=== PATIENT | male | born 1950 | race Caucasian/White ===

== ENCOUNTER 2016-10-25 12:35 | Inpatient (IN) | payer MEDICARE ==
[~2016-10-25] VITALS: Ht 191.8 cm; Wt 111.4 kg
[2016-10-25] MEDS ORDERED: LACTATED RINGERS 1,000 ML IV SCH (13:30)
[2016-10-25] MEDS ORDERED: PANT40TA5 PO (13:34)
[2016-10-25] MEDS ORDERED: SILD100T PO (13:34)
[2016-10-25] MEDS ORDERED: CHOL100015 PO (13:34)
[2016-10-25] MEDS ORDERED: NONE PER PT (13:37)
[2016-10-25 13:46] VITALS: BP 135/81
[2016-10-25] MEDS ORDERED: MIDAZOLAM 1 MG/ML, 2ML ONE (15:28)
[2016-10-25] MEDS ORDERED: FENTANYL PF 100 MCG/2ML ONE ×3 (15:28)
[2016-10-25] MEDS ORDERED: ROCURONIUM 10 MG/ML ONE (15:29)
[2016-10-25] MEDS ORDERED: KETOROLAC 30 MG/1 ML ONE (15:29)
[2016-10-25] MEDS ORDERED: DEXAMETHASONE 4 MG/ML, 1ML ONE (15:29)
[2016-10-25] MEDS ORDERED: SUCCINYLCHOLINE 20 MG/ML, 10ML ONE (15:29)
[2016-10-25] MEDS ORDERED: CEFAZOLIN 1,000 MG ONE (15:29)
[2016-10-25] MEDS ORDERED: ONDANSETRON 2MG/ML, 2ML ONE (15:29)
[2016-10-25] MEDS ORDERED: PROPOFOL 10 MG/ML, 20ML ONE (15:29)
[2016-10-25] MEDS ORDERED: OXYcodone 5 MG/5 ML ORAL.SOL UDC PO PRN (16:30)
[2016-10-25] MEDS ORDERED: PROMETHAZINE 25 MG/ML, 1ML IV PRN (16:30)
[2016-10-25] MEDS ORDERED: hydrALAzine 20 MG/ML, 1ML IV PRN (16:30)
[2016-10-25] MEDS ORDERED: DIAZEPAM 5 MG/ML, 2ML IVPush PRN (16:30)
[2016-10-25] MEDS ORDERED: ACETAMINOPHEN 325 MG TABLET PO PRN ×2 (16:30→18:00)
[2016-10-25] MEDS ORDERED: LABETALOL 5MG/ML, 20ML IV PRN (16:30)
[2016-10-25] MEDS ORDERED: ALBUTEROL/IPRATROPIUM 2.5MG/0.5MG, 3 ML NPPB PRN (16:30)
[2016-10-25] MEDS ORDERED: FENTANYL PF 100 MCG/2ML IV PRN (16:30)
[2016-10-25] MEDS ORDERED: MEPERIDINE/PF 25MG/0.5ML IVPush PRN (16:30)
[2016-10-25] MEDS ORDERED: MIDAZOLAM 1 MG/ML, 2ML IV PRN (16:30)
[2016-10-25] MEDS ORDERED: ONDANSETRON 2MG/ML, 2ML IVPush PRN (16:30)
[2016-10-25] MEDS ORDERED: HYDROmorphone 1 MG/ML, 1ML IV PRN (16:30)
[2016-10-25] MEDS ORDERED: ACETAMINOPHEN 650 MG SUPP PR PRN (18:00)
[2016-10-25] MEDS ORDERED: OXYcodone/APAP 5/325MG TABLET PO PRN (18:00)
[2016-10-25] MEDS ORDERED: DIPHENHYDRAMINE 50 MG/ML, 1ML IV PRN (18:00)
[2016-10-25] MEDS ORDERED: ONDANSETRON 2MG/ML, 2ML IV PRN (18:00)
[2016-10-25] MEDS ORDERED: morphine SULFATE 10 MG/ML, 1ML IV PRN (18:00)
[2016-10-25] MEDS ORDERED: DIPHENHYDRAMINE 25 MG CAPSULE PO PRN (18:00)
[2016-10-25 19:38] VITALS: BP 105/73
[2016-10-25] MEDS: D5%-0.45NACL+KCL 20MEQ 1,000 ML IV SCH (20:01)
[2016-10-25 23:20] VITALS: BP 104/67
[2016-10-25] MEDS: CEFOTETAN PMX 2GM/50ML 50 ML IVPB SCH (23:42)
[2016-10-26 03:05] VITALS: BP 117/73
[2016-10-26] MEDS: D5%-0.45NACL+KCL 20MEQ 1,000 ML IV SCH ×2 (04:53→12:53)
[2016-10-26 06:18] LABS: BLOOD UREA NITROGEN 17 mg/dL (7-18)
[2016-10-26 06:19] LABS: HEMATOCRIT 40.6 % (39.2-51.8); HEMOGLOBIN 13.7 g/dL (13.7-18.0)
[2016-10-26 08:08] VITALS: BP 110/68
[2016-10-26] MEDS: CEFOTETAN PMX 2GM/50ML 50 ML IVPB SCH (11:04)
[2016-10-26 12:47] VITALS: BP 113/74
[2016-10-26] MEDS ORDERED: AMOX1TAB61 PO (13:21)
== END 2016-10-26 13:30 | disposition home or self-care (01) | DRG 570 ==
LOC: OUT 12:35 → 4NOR 17:22 → OUT 17:31 → 4NOR 17:32 → DCLOUNGE 10-26 13:13
PROVIDERS: ADMIT Surgery; ATTEND Surgery
PROC: 0JB70ZZ Excision of Back Subcutaneous Tissue and Fascia, Open Approach (ICD-10-PCS; principal; 2016-10-25 15:15)
DX: L02.212 Cutaneous abscess of back [any part, except buttock and flank] (principal); E43 Unspecified severe protein-calorie malnutrition; L72.3 Sebaceous cyst
CPT/HCPCS: 36415; 80048; 82040; 85025; 87070; 87075; 87181; 87205; 93005; J0690; J1100; J1885; J2250; J2405; J2704; J3010; J0330; J3480; J7120; S0074